=== PATIENT | female | born 1935 | race Caucasian/White ===

== ENCOUNTER 2016-11-13 03:18 | Inpatient (IN) | payer MEDICARE ==
--- NOTE | ~2016-11-13 | CT95 ---
[facility] A Service of [facility] RADIOLOGY TEXT RESULTS PATIENT: DAWN ROMAN LOCATION: A 301- : 37 UNIT #: [id number] AGE: [address]: Kate Hill MD SEX: F ORDER DR: [id number] [facility] [address] [facility]. [place], [place] [address] [id number] I MR#: [id number] Acc #: [id number] NAME: DAWN ROMAN : 1935 SEX: F STUDY DATE/TIME: 11/14/2016 17:48 UNIT: C3A U ROOM: [facility] STUDY DESCRIPTION: CT Lower Ext Rt Wo Cont Attending Physician: Kate Hill M.D. Ordering Physician: Tyson Bar M.D. Primary Care Physician: Primary Care Physician No MEDICAL IMAGING REPORT This report is preliminary unless electronic signature is present EXAM CT right ankle without contrast HISTORY Ankle pain and swelling and redness at lateral malleolus. No injury. Symptoms today. FINDINGS CT right ankle without contrast demonstrates moderate diffuse subcutaneous stranding about the ankle, greater over the medial and lateral malleoli. Additional subcutaneous stranding about the ankle could be due to edema or cellulitis. Old fractures of the medial and lateral malleoli. This includes an ununited fracture fragment at the tip of the lateral malleolus. No fluid collection or soft tissue gas. No bony erosion. IMPRESSION 1. Moderate diffuse subcutaneous stranding about the ankle, likely due to edema or cellulitis. 2. No focal fluid collection. 3. Old fractures of the medial and lateral malleoli. Dictated by... Lauri Crespo M.D. THIS IS AN ELECTRONICALLY VERIFIED REPORT Lauri Crespo M.D. at 11/15/2016 2:44 PM KYRA/keren TD: 11/15/2016 06:53 JOB #: [id number] MEDICAL IMAGING REPORT Page 1 of 1 COPY
--- NOTE | ~2016-11-13 | CO ---
Unit #: [id number] #: [id number] Patient: DAWN BOWLING [id number] [address] [address] [id number] I MR#: [id number] NAME: DAWN BOWLING ROOM: 301 Age: 81 Sex: F Admission Date: 11/13/2016 : 1935 Attending Physician: Kate Hill M.D. Consultation Date: 11/14/2016 CONSULTATION REPORT JOB NOTE: DICTATED FOR NOT DICTATED REASON FOR CONSULTATION Right ankle pain and swelling. HISTORY OF PRESENT ILLNESS Ms. Bowling is a 81-year-old female, presents today with right ankle pain and swelling. This has been going on for the past day. She denies any injury that she can recall. She does have a history of a previous medial malleolus fracture that is healed. She reports that all of her pain is localized laterally over the lateral malleolus. She reports pain and swelling that has been going on for 1 day. She has no history of gout. She reports some fevers and chills upon admission. She also reports history of DVT. PAST MEDICAL HISTORY Significant for COPD, hypertension, breast cancer, PE, hyperlipidemia, fibromyalgia. MEDICATIONS Include Toviaz, Eliquis, Mirapex, tamoxifen, Coreg, Vicodin, Lyrica, Cymbalta, Zocor, and Zestril. ALLERGIES Penicillin. SURGICAL HISTORY Significant for mastectomy, hysterectomy, cholecystectomy. SOCIAL HISTORY The patient lives at home. She smokes a pack of cigarettes a day. She denies any alcohol or illicit drug use. FAMILY HISTORY Insignificant. REVIEW OF SYSTEMS 10 organ systems were reviewed. The patient denies any blurry vision, congestion, sore throat, shortness of breath, chest pain, abdominal pain, urinary incontinence, numbness, tingling, skin ulcers or lesions, anxiety, depression. Positive for joint pain. PHYSICAL EXAMINATION GENERAL: No acute distress. Alert and oriented x3. Unit #: [id number] #: [id number] Patient: DANW BOWLING VITAL SIGNS: Temperature 98.3, pulse 81, respirations 17, blood pressure 117/56. HEENT: PERRLA. Nonicteric sclerae. THORAX: Trachea midline. No thyromegaly. CARDIAC: S1 and S2. No extra sounds or murmurs. LUNGS: Clear to auscultation. No rales or rhonchi. ABDOMEN: Nondistended, nontender. Positive bowel sounds. : Deferred. MUSCULOSKELETAL: Positive erythema, positive edema, positive tenderness to palpation over the lateral malleolus. Limited flexion and extension. Positive calf tenderness. NEUROLOGIC: II through 12 intact. SKIN: Cool and dry. PSYCHIATRIC: Good insight. Good judgment. Mood and affect are pleasant. DIAGNOSTIC STUDIES LABORATORY RESULTS: On admission, white count is 9.4, hemoglobin 8.9, hematocrit 26.7, platelets 132. INR is 1.1. Sodium 136, potassium 3.6, chloride 112, bicarb 21, BUN 22, creatinine 1, glucose 130. IMAGING STUDIES: X-rays, 3 views of the right ankle ordered and reviewed and shows some soft tissue swelling, positive degenerative changes, old medial malleolus fracture that is healed. No acute fractures are seen. Positive calcaneal spur is also identified. ASSESSMENT Right ankle pain and swelling. Evaluate for possible infection. PLAN I discussed treatment options with the patient. I would like to get some labs. We will order CRP, sedimentation rate, and uric acid level for the morning. We will also go ahead and get a CT scan of the ankle to evaluate for possible fluid within the joint. We will also order a venous Doppler ultrasound to evaluate for any possible DVT of the right lower extremity. Thank you for the consult. Dictated by... Thomas Mishra for Tyson Bar M.D. QUINCY/carline TD: 11/15/2016 07:15 JOB #: [id number] CONSULTATION REPORT Page 1 of 1 X Lynne Parr CONSULTATION REPORT
--- NOTE | ~2016-11-13 | CO ---
Unit #: [id number] #: [id number] Patient: DAWN ROMAN [id number] [id number] [facility]. [place], [place] [address] [id number] I MR#: [id number] NAME: DAWN ROMAN ROOM: 301 Age: 81 Sex: F Admission Date: 11/13/2016 : 1935 Attending Physician: Kate Hill M.D. Consultation Date: 11/14/2016 CONSULTATION REPORT REASON FOR CONSULTATION Mental status changes. PATIENT IDENTIFICATION This is a 81-year-old, right-handed white female, who was evaluated in room 301 at [facility]. SOURCE OF INFORMATION The patient and her daughter and evaluation by admitting team. PROBLEM LIST 1. COPD. 2. Hypertension. 3. History of breast cancer. 4. Anticoagulation therapy for PE. 5. Hyperlipidemia. 6. Fibromyalgia. 7. Status post hysterectomy. 8. Mastectomy and cholecystectomy. HISTORY OF PRESENT ILLNESS This is a 81-year-old female with multiple medical problems, who was actually admitted yesterday. The reason was that she had decreased level of consciousness. She was fine on Sunday and Sunday. Her daughter left her for some time, and when she came back she was still sitting at the same place. She was confused. Her daughter told her that she should come to the hospital, but the patient refused, so she went out and came back later that day, and she was still sitting in the same position. She was brought to the emergency room. Her temperature was 100.7, and blood pressure was running in the low 100s, it was 100 to 107 and 42 to 60s diastolic. At one time, it dropped to 82/52. Other abnormality was that her pO2 was low at 62.5, BUN was 29, creatinine was 1.8, her white count was 13.5, H and H of [address] was okay. Urine drug screen was unremarkable. Urinalysis showed some blood, but nothing major. So, ID consultation was obtained, and one of the concern was this respiratory issue. The other was the possibility of cellulitis in the right leg, which is now more pronounced, but incidentally the patient is fine, she is awake and alert. She is fully oriented. The question still remains, what is the condition, next is she never had history of seizures, next is her MRI is not done, next is her labs really did not show anything major. She is on Vicodin, so does is there a possibility she could have taken an extra dosage. Other issue is that could she have a seizure, and because of her breast cancer, could she have metastatic disease. Her MRI is pending. Unit #: [id number] #: [id number] Patient: DAWN ROMAN No falls or injuries. Nothing really suggesting meningitis type picture. PAST MEDICAL HISTORY As discussed above. PAST SURGICAL HISTORY As discussed above. ALLERGIES Penicillin. HOME MEDICATIONS 1. Toviaz 4 mg daily. 2. Eliquis 5 mg daily. 3. Mirapex 0.25 mg at bedtime. 4. Tamoxifen 20 mg daily. 5. Coreg 6.25 mg twice daily. 6. Vicodin 7.5/300 one tablet twice daily. 7. Lyrica 100 mg three tablets daily. 8. Cymbalta 60 mg daily. 9. Zocor 10 mg at bedtime. 10. Zestril 2.5 mg daily. FAMILY HISTORY Nothing suggesting neurologic issues as no stroke or seizures or inside condition. SOCIAL HISTORY The patient apparently is single and lives by herself, but does have a lot of family support. She has two daughters at least that I know of, and they check on her frequently, and she has neighbors who take care of her. She still continues to smoke. No alcohol or drug use. REVIEW OF SYSTEMS CONSTITUTIONAL: The patient denies any sleep issues, fever, chills, rigor, or sweats. She denies any recent weight issues. HEENT: No headaches. No double vision, earache, runny nose, or sore throat. CARDIOVASCULAR: No chest pain, clubbing, cyanosis, orthopnea, or palpitation. PULMONARY: No shortness of air, cough, or expectoration. No nausea vomiting, diarrhea, or constipation. GENITOURINARY: No genitourinary symptom. EXTREMITIES: No extremity problems. BACK: No back problem. PSYCHIATRIC: No psychotic issue. NEUROLOGIC: As discussed. No other hematologic, dermatologic, or endocrine problems. PHYSICAL EXAMINATION VITAL SIGNS: Temperature 97.7, T-max was 102.5, pulse is 71, respirations are 17, blood pressure 95/42, and O2 saturations are 96% to 100%. Weight of 201 pounds. BMI was 29. NEUROLOGIC: The patient is awake. She is alert. She is oriented. She Unit #: [id number] #: [id number] Patient: DAWN ROMAN can name. She can follow commands. No right/left confusion. No finger agnosia. Cranial nerve examination demonstrates full fuller of vision to confrontation. Eye movements are conjugate. I did not see any ptosis. I did not see any nystagmus. Extraocular movements are intact. Sensation on the face and scalp are normal. Strength of muscles of facial expression normal. Hearing seemed to be intact bilaterally. Tongue was midline. Uvula was midline. Palate elevation is normal. Head turning and shoulder shrugs were unremarkable. No neck stiffness was seen. Motor examination demonstrated normal bulk, tone. Strength was essentially 5/5. Sensory examination intact for soft touch and pain sensation. No extinction was seen. Romberg was not evaluated. Gait examination was deferred. Reflexes 1/4. Toes are equivocal. Coordination was normal. DIAGNOSTIC STUDIES Labs and imaging studies reviewed. IMPRESSION This is a very interesting 81-year-old female with acute mental status change that has resolved. The question is what was the initial problem, is this cellulitis, is this an infection. It does not look like meningitis. Could she have taken extra doses of her medications or missed them because they can cause the problem. She does have history of breast cancer, so could she have seizure that could point to metastatic disease. Is she immunocompromised, does she have she have abnormal reaction, and she may have meningitis, so definitely I will check her B12 level, folate level, EEG, and MRI and see how things go. Clinically, she is doing so well. I will observe her only. She is already on Lyrica, which is an antiepileptic anyway, so I will see how things go. I will keep you informed. I have talked to her daughter, and if MRI is okay and she is fine, I will just observe her. Call me for any other questions, issues, concerns, or further events, and as far as I am concerned, if everything else turns out okay, she may be discharged, she will be put on observation status. Follow up with Neurology if needed. Dictated by... Alireza Sargent/carline TD: 11/15/2016 02:32 JOB #: [id number] Unit #: [id number] #: [id number] Patient: DAWN ROMAN CONSULTATION REPORT Page 1 of 1 X Neo Plummer MD CONSULTATION REPORT
--- NOTE | ~2016-11-13 | EKG ---
PATIENT: DAWN ROMAN UNIT #: [id number] Ventricular Rate: 101 BPM Atrial Rate: 101 BPM P-R Interval: 216 ms QRS Duration: 110 ms Q-T Interval: 366 ms QTC Calculation(Bezet): 474 ms P Streator: 75 degrees Calculated R Streator: -57 degrees Calculated T Streator: 62 degrees Diagnosis Line: Sinus tachycardia with 1st degree A-V block with Diagnosis Line: occasional Premature ventricular complexes Diagnosis Line: Left axis deviation Diagnosis Line: Low voltage QRS Diagnosis Line: Abnormal ECG Diagnosis Line: No previous ECGs available Diagnosis Line: Confirmed by ESTRELLITA HURT MD ([id number]) on 11/13/2016 Diagnosis Line: 11:03:40 PM INTERPRETING MD: LICHA SALAMANCA
--- NOTE | ~2016-11-13 | HP ---
Unit #: [id number] #: [id number] Patient: DAWN ROMAN [id number] [address] [place], [place] [address] [id number] I MR#: [id number] NAME: DAWN ROMAN ROOM: 301 Age: 81 Sex: F Admission Date: 11/13/2016 : 1935 Attending Physician: Kate Hill M.D. HISTORY AND PHYSICAL CHIEF COMPLAINT Altered mental status. HISTORY OF PRESENTING ILLNESS A 81-year-old female with multiple medical problems was admitted early this morning. According to patient's daughter who is at bedside, patient was doing very well on Sunday. She was even sitting outside and even watching TV. Patient's daughter left to take care of her boyfriend and came back the next day at noon and patient was still sitting at the same time. She was kind of slumped over. She had urinated on herself and was not speaking to her. She had slurred speech and she was trying for her mother to come to the hospital, but somehow patient refused. She came back again in the evening and was still in the same condition. Patient's daughter called EMS, and patient was brought to the ER. Patient is awake, alert, and oriented x3 at this time. According to her, she remembers her daughter going Sunday evening, and after that, she does not remember anything. She smokes and continues to smoke more than one pack per day. According to daughter, it had seemed like that she did not even smoke, and she was just completely confused. She did not recognize her daughter. At this time, she seems to have recovered. Patient does not complain of chest pain, does not complain of abdominal pain, no complaint of decreased strength in any of the extremities, and no complaint of numbness or tingling at this time. PAST MEDICAL HISTORY Patient does have a pretty significant past medical history. 1. Chronic obstructive pulmonary disease. 2. Hypertension. 3. History of breast cancer. 4. Anticoagulation therapy for PE. 5. Hyperlipidemia. 6. Fibromyalgia. PAST SURGICAL HISTORY 1. Mastectomy. 2. Hysterectomy. 3. Cholecystectomy. HOME MEDICATIONS 1. Toviaz 4 mg p.o. daily. 2. Eliquis 5 mg twice daily. 3. Mirapex 0.25 mg at bedtime. 4. Tamoxifen 20 mg daily. 5. Coreg 6.25 mg twice daily. Unit #: [id number] #: [id number] Patient: DAWN ROMAN 6. Vicodin 7.5/300 at 1 tablet twice daily. 7. Lyrica 100 mg 3 times daily. 8. Cymbalta 60 mg daily. 9. Zocor 10 mg at bedtime. 10. Zestril 2.5 mg daily. ALLERGIES PENICILLIN. SOCIAL HISTORY Patient lives at home by herself, but she does have a lot of her daughter's support who looks after her and comes to visit her almost on a daily basis. She also has neighbors who kind of look after her. She smokes one pack per day. No history of alcohol abuse or drug abuse. REVIEW OF SYSTEMS As per History of Presenting Illness. No history of fever, chills, or rigors, although in the ER patient's temperature was 100.7. No history of chest pain. She does have some cough, but according to daughter, it seems like a chronic cough and a smoker's cough. No history of abdominal pain at this time, no history of polyuria, no history of dysuria, no history of constipation or diarrhea, and no history of syncopal episode. PHYSICAL EXAMINATION GENERAL: Patient is lying in bed. She seems to be awake, alert, and oriented x3 at this time. VITAL SIGNS: Blood pressure is 98/50, respiratory rate 18, pulse 88, temperature 97.9 with T-max of 100.7, and oxygen saturation is 94%. HEENT: Head is normocephalic. Eye movements are normal. Pupils are equal and reactive to light. No conjunctival congestion. NECK: Supple. CHEST: Fair air entry. No additional sounds. CARDIOVASCULAR: S1 and S2 positive. Regular rhythm. ABDOMEN: Obese and soft. No tenderness. Bowel sounds are positive in all quadrants. EXTREMITIES: Negative edema. Pulses are palpable. CENTRAL NERVOUS SYSTEM: Awake, alert, and oriented x3. No focal neurological deficit. DIAGNOSTIC STUDIES LABORATORY: WBC 13.5, hemoglobin 12, hematocrit 36.5, and platelet count of 189,000. Lactic acid 2.1. Troponin less than 0.05. Sodium 131, potassium 3.6, chloride 100, BUN 29, and creatinine 1.9. Liver enzymes are stable. BNP is 73. Urinalysis shows 1+ protein. Influenza A and B are negative. Urine drug screen is negative. Ammonia 18. Lactic acid this morning was 1. IMAGING: Chest x-ray, single view, was done. Low volume image with imaging features suggestive of mild fibrosis and scarring. No dense consolidation. Postoperative changes in the right axilla. CT scan of the head without contrast shows no clearly acute intracranial process. No evidence of acute intracranial hemorrhage. Mild generalized atrophy and chronic ischemic changes are seen. ASSESSMENT Patient is being admitted to telemetry unit with: 1. Altered mental status, possible transient ischemic attack. 2. Fever, source is unknown at this time. Unit #: [id number] #: [id number] Patient: DAWN ROMAN 3. Hypotension. 4. Chronic obstructive pulmonary disease. 5. History of breast cancer. 6. Anticoagulation therapy for pulmonary embolism. 7. Hyperlipidemia. PLAN Admit to telemetry unit. Dr. Plummer has been consulted. MRI of the head with contrast is being done. Infectious Disease will be consulted because of fever of unknown source at this time. Patient did receive cefepime and vancomycin in the ER for possible sepsis and possible pneumonia, although I do not see in the x-ray any infiltrate. Labs will be again tomorrow morning because she does have leukocytosis. Home medications have been adjusted. Tobacco cessation counseling has been done, but according to patient, she will continue to smoke. Discussed with patient's daughter at length. Please refer to progress note for further orders. I have discussed with patient about code status. According to her, she has decided for Do Not Resuscitate status. Dictated by Alireza James/violeta TD: 11/13/2016 14:53 JOB #: [id number] HISTORY AND PHYSICAL Page 1 of 1 X Kate Hill MD X HISTORY AND PHYSICAL
--- NOTE | ~2016-11-13 | CT71 ---
[facility] A Service of [facility] RADIOLOGY TEXT RESULTS PATIENT: DAWN ROMAN LOCATION: [facility] : 37 UNIT #: [id number] AGE: [address]: Kate Hill MD SEX: F ORDER DR: [id number] [facility] [address] [facility] [address] [facility]. [place], [place] [address] [id number] I MR#: [id number] Acc #: [id number] NAME: DAWN ROMAN : 1935 SEX: F STUDY DATE/TIME: 11/13/2016 2:12 UNIT: C3A PCU ROOM: [facility] STUDY DESCRIPTION: CT Head Wo Contrast Attending Physician: Kate Hill M.D. Ordering Physician: Peace Montoya M.D. Primary Care Physician: No Primary Care Physician MEDICAL IMAGING REPORT This report is preliminary unless electronic signature is present EXAM Head CT no contrast, 11/13/2016. INDICATION 81-year-old female with weakness and confusion for a day. No known injury. History of breast cancer and right mastectomy. TECHNIQUE Noncontrast CT brain was performed. This CT exam was performed with one or more of the following radiation dose reduction techniques: automatic exposure control, adjustment of mA and/or kV according to patient size, and iterative reconstruction. COMPARISON We have no comparisons. FINDINGS CT brain: There is mild generalized atrophy. Sulci and ventricles are otherwise unremarkable. No midline shift. No evidence of acute intracranial hemorrhage. There is no mass, mass effect or edema to suggest acute infarct. No extraaxial fluid collections are present. Minimal periventricular white matter changes are present, likely reflecting chronic ischemic small vessel disease. Globes are intact. Bones intact. Sinuses clear. IMPRESSION 1. No clearly acute intracranial process. No evidence of acute intracranial hemorrhage. 2. Mild generalized atrophy and chronic ischemic changes. We have no comparisons. Dictated by... [facility] A Service of [facility] RADIOLOGY TEXT RESULTS PATIENT: DAWN ROMAN LOCATION: [facility] : 37 UNIT #: [id number] AGE: [address]: Kate Hill MD SEX: F ORDER DR: Jose White M.D. THIS IS AN ELECTRONICALLY VERIFIED REPORT Jose White M.D. at 11/13/2016 9:59 PM Maeve TD: 11/13/2016 10:36 JOB #: [id number] MEDICAL IMAGING REPORT Page 1 of 1 COPY
--- NOTE | ~2016-11-13 | CR72 ---
[facility] A Service of [facility] RADIOLOGY TEXT RESULTS PATIENT: DAWN ROMAN LOCATION: [facility] : 37 UNIT #: [id number] AGE: [address]: Kate Hill MD SEX: F ORDER DR: [id number] [facility] [address] [facility]. [place], [place] [address] [id number] I MR#: [id number] Acc #: [id number] NAME: DAWN ROMAN : 1935 SEX: F STUDY DATE/TIME: 11/13/2016 1:54 UNIT: [address] ROOM: [facility] STUDY DESCRIPTION: CR Chest Single View Portable Attending Physician: Kate Hill M.D. Ordering Physician: Peace Montoya M.D. Primary Care Physician: Primary Care Physician No MEDICAL IMAGING REPORT This report is preliminary unless electronic signature is present EXAM Frontal chest, 11/13/2016 INDICATION Altered mental status in a 81-year-old female. Short of air weakness, COPD, symptoms today. History of breast cancer. TECHNIQUE Frontal chest was performed. COMPARISON No comparisons FINDINGS Cardiac silhouette is within normal limits. Aorta demonstrates ectasia and atherosclerotic change of the aortic knob. Lung volumes are low. There is bronchovascular crowding and probably some degree of underlying fibrosis and scarring in the lungs given generalized interstitial prominence. More confluent scar favored in the midlung zone on the left. No dense consolidation, effusion or pneumothorax. Incidental azygos lobe. Postop changes of right axillary surgery. IMPRESSION 1. Low-volume image with imaging features suggestive of mild fibrosis and scarring in the lungs. No dense consolidation, effusion or pneumothorax. 2. Postop changes right axilla. 3. We have no comparisons. Dictated by... Jose White M.D. THIS IS AN ELECTRONICALLY VERIFIED REPORT [facility] A Service of [facility] RADIOLOGY TEXT RESULTS PATIENT: DAWN ROMAN LOCATION: [facility] : 37 UNIT #: [id number] AGE: [address]: Kate Hill MD SEX: F ORDER DR: Jose White M.D. at 11/13/2016 9:59 PM LIBRA/heydi TD: 11/13/2016 10:35 JOB #: [id number] MEDICAL IMAGING REPORT Page 1 of 1 COPY
--- NOTE | ~2016-11-13 | US85 ---
[facility] A Service of [facility] RADIOLOGY TEXT RESULTS PATIENT: [place] LOCATION: [facility] : 37 UNIT #: [id number] AGE: [address]: Kate Hill MD SEX: F ORDER DR: [id number] [place] [id number] [facility]. [place], [place] [address] [id number] I MR#: [id number] Acc #: [id number] NAME: [place] ROM[place] : 1935 SEX: F STUDY DATE/TIME: 11/14/2016 18:19 UNIT: [address] ROOM: [address] [place] [address] DESCRIPTION: LE Veins Unilat or Ltd Stdy Attending Physician: Kate Hill M.D. Ordering Physician: Tyson Bar M.D. Primary Care Physician: No Primary Care Physician MEDICAL IMAGING REPORT This report is preliminary unless electronic signature is present EXAM Right lower extremity venous ultrasound HISTORY Right lower extremity pain and swelling for 1 day. TECHNIQUE Venous ultrasound examination of the right lower extremity was performed using grayscale, spectral Doppler and color flow Doppler imaging. FINDINGS The examination is negative. There is no evidence of right lower extremity deep venous thrombus from the groin to the lower calf. Visualized greater saphenous vein is also patent. IMPRESSION Negative examination. No evidence of right lower extremity deep venous thrombosis. Dictated by... Lauri Crespo M.D. THIS IS AN ELECTRONICALLY VERIFIED REPORT Lauri Crespo M.D. at 11/15/2016 2:40 PM KYRA/flower TD: 11/14/2016 23:51 JOB #: [id number] MEDICAL IMAGING REPORT [facility] A Service of [facility] RADIOLOGY TEXT RESULTS PATIENT: [place] LOCATION: [facility] : 37 UNIT #: [id number] AGE: [address]: Kate Hill MD SEX: F ORDER DR: Page 1 of 1 COPY
--- NOTE | ~2016-11-13 | MR17 ---
[facility] A Service of [facility] RADIOLOGY TEXT RESULTS PATIENT: [place] ROMAN LOCATION: [facility] : 37 UNIT #: [id number] AGE: [address]: Kate Hill MD SEX: F ORDER DR: [id number] [facility] [address] [facility]. [place], [place] [address] [id number] I MR#: [id number] Acc #: [id number] NAME: [place] ROM[place] : 1935 SEX: F STUDY DATE/TIME: 11/14/2016 17:14 UNIT: [address] ROOM: [address] [place] [address] DESCRIPTION: MR Brain WWo Contrast Attending Physician: Kate Hill M.D. Ordering Physician: Neo Plummer M.D. Primary Care Physician: Primary Care Physician No MRI CENTER REPORT This report is preliminary unless electronic signature is present. EXAM MRI brain without and with IV gadolinium. HISTORY Memory loss 2 days ago. FINDINGS MRI brain was performed without and with IV gadolinium. No recent ischemia or infarct. No restricted diffusion. Mild generalized cerebral and cerebellar cortical atrophy. Qgih-hb-yvoruhto multifocal subcortical and periventricular areas of increased T2 and FLAIR signal, stable compared to MRI brain 03/23/2016, most likely chronic ischemic changes. No abnormal intracranial enhancement. No midline shift or ventricular dilatation or extraaxial fluid collection. Exam sensitivity is partly limited by motion. Stable approximately 1 cm scalp subcutaneous lesion in the right posterior parietal scalp, likely a sebaceous cyst or other benign process. IMPRESSION 1. No acute finding. 2. No recent ischemia or infarct. 3. Mild probable chronic ischemic changes in the periventricular and subcortical white matter bilaterally. 4. Probably incidental subcentimeter scalp subcutaneous lesion right posterior parietal region, unchanged since the prior study. This could be a sebaceous cyst. Dictated by... Lauri Crespo M.D. THIS IS AN ELECTRONICALLY VERIFIED REPORT [facility] A Service of [facility] RADIOLOGY TEXT RESULTS PATIENT: [place] LOCATION: [facility] : 37 UNIT #: [id number] AGE: [address]: Kate Hill MD SEX: F ORDER DR: Lauri Crespo M.D. at 11/14/2016 11:37 PM DFL/yaritza TD: 11/14/2016 23:28 JOB #: [id number] MRI CENTER REPORT Page 1 of 1 COPY
--- NOTE | ~2016-11-13 | CO ---
Unit #: [id number] #: [id number] Patient: [place] [id number] [address] [address] [id number] I MR#: [id number] NAME: [place] ROOM: 301 Age: 81 Sex: F Admission Date: 11/13/2016 : 1935 Attending Physician: Kate Hill M.D. Primary Care Physician: Primary Care Physician No Requesting Physician: Kate Hill M.D. Consultation Date: 11/13/2016 CONSULTATION REPORT REASON FOR CONSULTATION Fever. HISTORY OF PRESENT ILLNESS This is a 81-year-old white female who is currently wide awake, alert and oriented and does not have any focal symptoms at this time. She was brought in, apparently, by her daughter who found her a little bit unresponsive and slumped over for a few hours. The patient, however, denies any headache, fever, chills, dysuria or cough. She had a fever of 100.7 on admission which has now resolved. There was mild leukocytosis but chest x-ray, urinalysis, and head CT were normal. She was started on vancomycin and ceftriaxone and ID was consulted for further evaluation. The patient currently is stable. She is wide awake and alert and does not have any symptoms at this time. She specifically denies any headache, focal neurologic symptoms, seizures, cough, abdominal pain, dysuria, fever or rashes. Epidemiologic history is negative. She has not been to the hospital in the last three years and lives at home. PAST MEDICAL HISTORY 1. COPD. 2. Hypertension. 3. History of breast cancer. 4. Anticoagulation therapy for PE. 5. Hyperlipidemia. 6. Fibromyalgia. PAST SURGICAL HISTORY 1. Cholecystectomy. 2. Hysterectomy. 3. Mastectomy. HOME MEDICATIONS 1. Zestril. 2. Zocor. 3. Cymbalta. 4. Lyrica. 5. Vicodin. 6. Coreg. 7. Tamoxifen. 8. Mirapex. 9. Eliquis. 10. Toviaz. In the hospital, she is on vancomycin and cefepime as well. Unit #: [id number] #: [id number] Patient: [place] ALLERGIES Penicillin causes a mild rash. SOCIAL HISTORY She lives by herself but daughter takes care of her. She smokes cigarettes. No history of alcohol or drug use. REVIEW OF SYSTEMS Currently, she is completely asymptomatic. On the day of admission, she was weak, somewhat disoriented and was found slumped over but there was no fall, focal neurologic symptoms, fever, chills, cough, dysuria, rashes, etc., or bruise. PHYSICAL EXAMINATION VITAL SIGNS: Stable. Temperature 98, heart rate 93, respirations 18, blood pressure 110/70, T. max 100.7 on admission which has now resolved. There was no hypotension documented except for one reading of 82/52. GENERAL: Elderly obese white female who is currently awake and alert in no acute distress. HEENT: Unremarkable. Oral mucosa is normal, there is no thrush. NECK: Supple. LUNGS: Clear to percussion and auscultation. HEART: Sounds are normal. No murmurs. ABDOMEN: [place] to be soft and nontender. There is no organomegaly or ascites. Bowel sounds are normal. EXTREMITIES: Nonpitting edema bilaterally. No rash or cellulitis. NEUROLOGIC: Nonfocal. DIAGNOSTIC STUDIES LABORATORY: Lactic acid level is 1. Ammonia 18. Urine drug screen was negative. Influenza screen was negative. Urinalysis shows no evidence of urinary tract infection. Sodium 131, potassium 3.1, chloride 100, CO2 is 22, BUN 23, creatinine 1.8, glucose 230. White count 13.5, hemoglobin 12, platelets 189, neutrophils 93%. IMAGING: Head CT is negative for any acute bleed, infarction or acute ischemic changes. Chest x-ray shows no active acute infiltrate. IMPRESSION Transient mental status changes which have now resolved, patient is back to her baseline. This could happen due to either postictal state or TIA, both of which can cause low-grade fever and leukocytosis. Currently, fever has gone away and patient does not have any symptoms of infection at this time. RECOMMENDATIONS 1. Will hold antibiotics at this time. Will wait for the cultures. 2. Check serum procalcitonin level. 3. I have asked nursing staff to call me if the patient has fever, change in clinical status, or if any positive blood culture is reported. 4. At this time, risk of antibiotics in this patient is quite significant and will hold off antibiotics at this time since infection is not strongly suspected. Unit #: [id number] #: [id number] Patient: [place]AN Dictated by... Alireza Mc TD: 11/14/2016 16:37 JOB #: [id number] CONSULTATION REPORT Page 1 of 1 X Piyush Guerra MD CONSULTATION REPORT
--- NOTE | ~2016-11-13 | DS ---
Unit #: [id number] #: [id number] Patient: [place]AN [id number] [address] [place], [place] [address] [id number] I MR#: [id number] NAME: [place] ROOM: 301 Age: 81 Sex: F Admission Date: 11/13/2016 : 1935 Discharge Date: 11/16/2016 Attending Physician: Kate Hill M.D. DISCHARGE SUMMARY CONSULTATION DURING HOSPITALIZATION 1. Dr. Guerra from Infectious Disease. 2. Dr. Neo Plummer from Neuro Services. 3. Dr. Bar from Orthopedic Surgery. FINAL DIAGNOSES 1. Altered mental status on admission, which is resolved. Dr. Plummer was consulted for mental status changes. MRI of the head was done, which showed no acute finding. No recent ischemia or infarct. Mild probable chronic ischemic changes in the periventricular and subcortical white matter bilaterally. The patient's mental status improved the next day with hydration and antibiotics. 2. Fever, which is resolved. The patient had a temp of 102.5 on 11/13/2016, and temp of 100.[address] Guerra was consulted. The patient developed right ankle redness, swelling, and pain. Most likely, it is secondary to cellulitis. The patient is doing very well. She received IV Rocephin during hospitalization. The patient will need to continue elevation while sitting. The patient's medications, antibiotics are being changed to Keflex 1 g p.o. q.6 hourly through 11/26/2016. As per Infectious Disease, the patient can be discharged home. 3. Hypotension, on admission. The patient did have hypotension, which is resolved. 4. Right ankle cellulitis. Ortho was also consulted. There was no fluid. CT scan was done. No further workup. Uric acid was drawn which was 5.3 and CRP 7.6, sedimentation rate 76. Venous Doppler study also was done, which was negative. No further workup from Ortho point of view. 5. Chronic obstructive pulmonary disease, which is stable. Continue home medications. 6. Anticoagulation therapy for pulmonary embolism, continue same. 7. Hyperlipidemia, continue same medication. 8. History of breast cancer. 9. History of fibromyalgia, continue home medication. 10. B12 deficiency. 11. Hypertension. DIAGNOSTIC STUDIES LABORATORY RESULTS: On discharge; sodium 139, potassium 3.7, chloride 112, BUN 12, creatinine 0.8. CBC shows WBC 4.3, hemoglobin 9.2, hematocrit 27.6, and platelet count of 138. Blood cultures, no growth. C-reactive protein 7.6, which is elevated. Uric acid 5.3, normal range. B12 level was 159, which is very low. Folic acid 9.3. DISCHARGE MEDICATIONS Unit #: [id number] #: [id number] Patient: [place] ROMANflex 1 g q.6 hourly until 11/26/2016, Zocor 10 mg daily, Zestril 2.5 mg daily, Vicodin continue home dose, Toviaz 4 mg daily, cyanocobalamin 1000 mcg p.o. daily, Eliquis 5 mg p.o. b.i.d., continue Lyrica home dose, Cymbalta 60 mg daily, tamoxifen 20 mg daily, Mirapex 0.25 mg q.h.s., Coreg 6.25 mg b.i.d. PHYSICAL EXAMINATION VITAL SIGNS: Blood pressure 101/61, respiratory rate 20, pulse 82, temperature 98.3. HEENT: Head is normocephalic. CHEST: Fair air entry. CVS: Regular rhythm. EXTREMITIES: Right ankle edema and redness is still present, but improved. DISCHARGE INSTRUCTIONS 1. The patient is being discharged home in stable condition. 2. Medication as per med rec. 3. Follow up with primary care provider in 1 week. 4. CBC and BMP in 1 week. 5. She tended to eval and treat at home. 6. Plan of care has been discussed with the patient at length. Rehab was recommended, but the patient would rather go home. She does have 12/03 care. Dictated by... Alireza James/carline TD: 11/16/2016 22:32 JOB #: [id number] DISCHARGE SUMMARY Page 1 of 1 X Kate Hill MD X DISCHARGE SUMMARY
--- NOTE | ~2016-11-13 | CR18 ---
[facility] A Service of [facility] RADIOLOGY TEXT RESULTS PATIENT: [place] LOCATION: [facility] 301-01 : 37 UNIT #: [id number] AGE: [address]: Kate Hill MD SEX: F ORDER DR: [id number] [facility] [address] [facility]. [place], [place] [address] [id number] MR#: [id number] Acc #: [id number] NAME: [place] ROMAN : 1935 SEX: F STUDY DATE/TIME: 11/14/2016 8:57 UNIT: [address] ROOM: [facility] STUDY DESCRIPTION: CR Ankle 2 Views Rt Attending Physician: Kate Hill M.D. Ordering Physician: Kate Hill M.D. Primary Care Physician: Primary Care Physician No MEDICAL IMAGING REPORT This report is preliminary unless electronic signature is present EXAM Right ankle 3 views INDICATION 81-year-old female with pain, redness, swelling of the ankle since yesterday. COMPARISON No comparisons FINDINGS There is soft tissue swelling about the ankle. There is no evidence of an acute fracture. There appears be an old healed medial malleolar fracture. Ankle mortise intact. Calcaneal spurring. IMPRESSION Soft tissue swelling about the ankle. No evidence of acute fracture. Dictated by... Dominic John M.D. THIS IS AN ELECTRONICALLY VERIFIED REPORT Dominic John M.D. at 11/15/2016 9:07 AM Edie TD: 11/14/2016 12:25 JOB #: [id number] MEDICAL IMAGING REPORT Page 1 of 1 COPY
[2016-11-13 02:04] LABS: ARTERIAL BLOOD GAS PCO2 32.5 mmHg (35.0-45.0); ARTERIAL BLOOD GAS pH 7.422 (7.350-7.450)
[2016-11-13 02:05] LABS: ARTERIAL BLD GAS O2 SATURATION 93.3 % (90.0-100.0); ARTERIAL BLOOD GAS ART SITE LEFT RADIAL; ARTERIAL BLOOD GAS CARBOXY HB 1.1 %sat (0.0-9.0); ARTERIAL BLOOD GAS DELIVERY NASAL CANNULA; ARTERIAL BLOOD GAS FIO2 0.28 %; ARTERIAL BLOOD GAS HCO3 21.2 mmol/L; ARTERIAL BLOOD GAS MET HB 0.8 %sat (0.0-2.0); ARTERIAL BLOOD GAS PO2 62.5 mmHg (80.0-100); ARTERIAL DRAW? YES
[2016-11-13 02:15] LABS: BASOPHIL% 0.1 % (0-2.5); HEMATOCRIT 36.5 % (35.0-45.0); LYMPHOCYTE# 0.5 X10e3 (1.0-3.5); LYMPHOCYTE% 3.5 % (17.0-45.0); MEAN CELL VOLUME 91.6 FL (83-96); MEAN CORPUSCULAR HEMOGLOBIN 30.2 PG (28-34); MEAN PLATELET VOLUME 7.6 FL (6.5-11.5); MONOCYTE# 0.4 X10e3 (0-1.0); MONOCYTE% 2.6 % (3.0-12.0); NEUTROPHIL# 12.7 X10e3 (1.5-7.1); NEUTROPHIL% 93.8 % (40-75); PLATELET COUNT 189 X10e3 (140-420); RED BLOOD COUNT 3.99 X10e (3.90-5.30); RED CELL DISTRIBUTION WIDTH 14.7 % (11.0-15.5); WHITE BLOOD COUNT 13.5 X10e3 (4.0-10.5)
[2016-11-13 02:16] LABS: DIFF IND NO
[2016-11-13 02:27] LABS: INR 1.1; PARTIAL THROMBOPLASTIN TIME 29.4 SECONDS (23.5-31.3); PROTHROMBIN TIME (PATIENT) 11.3 SECONDS (9.6-11.5)
[2016-11-13 02:38] LABS: ALBUMIN SERUM 3.6 g/dL (3.5-5.0); BILIRUBIN, DIRECT 0.2 mg/dL (0.0-0.2); BILIRUBIN,INDIRECT 0.4 mg/dL (0.0-0.9); BILIRUBIN,TOTAL 0.6 mg/dL (0.2-2.0); BUN/CREATININE RATIO 16.11; CALCIUM SERUM 8.1 mg/dL (8.4-10.2); CREATININE SERUM 1.8 mg/dL (0.6-1.4); GLOM FILT RATE Estimated 26.3 mL/min (>60); MAGNESIUM 1.6 mg/dL (1.6-3.0); POTASSIUM 3.6 mmol/L (3.5-5.1)
[2016-11-13 02:38] LABS: POC - CKMB 1.6 ng/mL (0.0-7.9); POC - TROPONIN <0.05 ng/mL (<=0.05)
[2016-11-13 03:05] LABS: URINE SOURCE CLEAN CATCH
[2016-11-13 03:11] LABS: URINE APPEARANCE TURBID; URINE BILIRUBIN NEG (NEG); URINE BLOOD 3+ (NEG); URINE COLOR DK YELLOW; URINE GLUCOSE NEG (NEG); URINE KETONE NEG (NEG); URINE LEUKOCYTE ESTERASE NEG (NEG); URINE NITRATE NEG (NEG); URINE PROTEIN 1+ (NEG); URINE SPECIFIC GRAVITY 1.023 (1.003-1.035)
[2016-11-13 03:14] LABS: URINE BACTERIA AUWI NEG (NEGATIVE); URINE SQUAMOUS EPITHELIAL CELL FEW /[HPF]; UWBCS1 AUWI 0-2 (0-5)
[2016-11-13 03:16] LABS: CULTURE INDICATED? NO
[2016-11-13 03:46] LABS: INFLUENZA A NEG (NEG); INFLUENZA B NEG (NEG)
[2016-11-13 03:50] LABS: AMPHETAMINE NEG (NEG); BARBITURATES NEG (NEG); BENZODIAZEPINES NEG (NEG); COCAINE NEG (NEG); MARIJUANA NEG (NEG); OPIATES NEG (NEG); TRICYCLIC ANTIDEPRESSANTS NEG (NEG); U METHADONE NEG (NEG)
[2016-11-13 05:55] LABS: POC - CKMB 2.3 ng/mL (0.0-7.9); POC - TROPONIN <0.05 ng/mL (<=0.05)
[2016-11-13] MEDS ORDERED: VICODIN ES 7.51 EAC1 PO (12:01)
[2016-11-13] MEDS ORDERED: LYRICA PO (12:11)
[2016-11-13] MEDS ORDERED: DULOXETINE HCL60 M1 PO (12:16)
[2016-11-13] MEDS ORDERED: ZOCOR PO (12:17)
[2016-11-13] MEDS ORDERED: LISINOPRIL PO (12:18)
[2016-11-13] MEDS ORDERED: TOVIAZ4 MG PO (12:18)
[2016-11-13] MEDS ORDERED: ELIQUIS5 MG PO (12:19)
[2016-11-13] MEDS ORDERED: MIRAPEX0.25 MG PO (12:21)
[2016-11-13] MEDS ORDERED: TAMOXIFEN10 MG PO (12:23)
[2016-11-13] MEDS ORDERED: COREG6.25 MG PO (12:24)
[2016-11-14 05:23] LABS: HEMATOCRIT 26.7 % (35.0-45.0); MEAN CELL VOLUME 91.8 FL (83-96); MEAN CORPUSCULAR HEMOGLOBIN 30.6 PG (28-34); MEAN CORPUSCULAR HGB CONC 33.3 g/dL (30-36); MEAN PLATELET VOLUME 7.5 FL (6.5-11.5); RED BLOOD COUNT 2.9 X10e (3.90-5.30); WHITE BLOOD COUNT 9.4 X10e3 (4.0-10.5)
[2016-11-14 05:24] LABS: HEMOGLOBIN 8.9 gm/dL (12.0-16.0)
[2016-11-14 07:11] LABS: CALCIUM SERUM 7.2 mg/dL (8.4-10.2); GLOM FILT RATE Estimated 53.6 mL/min (>60); POTASSIUM 3.6 mmol/L (3.5-5.1)
[2016-11-14 12:26] LABS: FOLATE (FOLIC ACID) 9.3 ng/mL (>5.8)
[2016-11-15 05:34] LABS: HEMATOCRIT 26.3 % (35.0-45.0); HEMOGLOBIN 8.7 gm/dL (12.0-16.0); MEAN CELL VOLUME 92.1 FL (83-96); MEAN CORPUSCULAR HEMOGLOBIN 30.4 PG (28-34); MEAN PLATELET VOLUME 8.1 FL (6.5-11.5); RED BLOOD COUNT 2.85 X10e (3.90-5.30); WHITE BLOOD COUNT 5.8 X10e3 (4.0-10.5)
[2016-11-16 05:42] LABS: HEMATOCRIT 27.6 % (35.0-45.0); HEMOGLOBIN 9.2 gm/dL (12.0-16.0); MEAN CELL VOLUME 92.4 FL (83-96); MEAN CORPUSCULAR HEMOGLOBIN 30.8 PG (28-34); MEAN CORPUSCULAR HGB CONC 33.3 g/dL (30-36); MEAN PLATELET VOLUME 8.1 FL (6.5-11.5); RED BLOOD COUNT 2.99 X10e (3.90-5.30); RED CELL DISTRIBUTION WIDTH 14.5 % (11.0-15.5); WHITE BLOOD COUNT 4.3 X10e3 (4.0-10.5)
[2016-11-16 06:42] LABS: CALCIUM SERUM 7.7 mg/dL (8.4-10.2); CREATININE SERUM 0.8 mg/dL (0.6-1.4); GLOM FILT RATE Estimated 70.2 mL/min (>60); POTASSIUM 3.7 mmol/L (3.5-5.1)
[2016-11-16] MEDS ORDERED: CYANOCOBALAM1000 MCG PO (13:47)
[2016-11-16] MEDS ORDERED: ACETAMINOPHEN650 M1 PO (13:47)
[2016-11-16] MEDS ORDERED: KEFLEX PO (13:48)
== END 2016-11-16 14:17 | disposition home health service (06) | DRG 603 ==
LOC: CED 03:18 → CEDOF 04:23 → C3A PCU 10:23
PROVIDERS: Physician Assistant Medical; Psychiatry & Neurology Neurology; Student in an Organized Health Care Education/Training Program
DX: L03.115 Cellulitis of right lower limb (principal); I95.9 Hypotension, unspecified; J44.9 Chronic obstructive pulmonary disease, unspecified; R50.9 Fever, unspecified; D72.829 Elevated white blood cell count, unspecified; R41.82 Altered mental status, unspecified; I10 Essential (primary) hypertension; Z85.3 Personal history of malignant neoplasm of breast; Z86.711 Personal history of pulmonary embolism; Z79.01 Long term (current) use of anticoagulants; E78.5 Hyperlipidemia, unspecified; M79.7 Fibromyalgia; Z90.710 Acquired absence of both cervix and uterus; Z90.49 Acquired absence of other specified parts of digestive tract; Z88.0 Allergy status to penicillin; M25.571 Pain in right ankle and joints of right foot; E53.8 Deficiency of other specified B group vitamins
CPT/HCPCS: 36415; 36600; 70450; 70553; 71010; 73610; 73700; 80048; 80076; 80307; 81003; 82140; 82308; 82553; 82607; 82746; 82803; 82947; 83605; 83735; 83880; 84484; 84550; 85025; 85027; 85610; 85652; 85730; 86140; 87040; 87804; 93005; 93971; 96360; 96361; 97163; 97166; 97535; 99285; A9577; G8978-GP; G8979-GP; G8980-GP; G8987-GO; G8988-GO; J0692; J0696; J2405; J3370; J3420